=== PATIENT | female | born 1995 | race Caucasian/White ===

== ENCOUNTER 2022-09-09 19:15 | Emergency (ER) | payer BC, SELFPAY ==
--- NOTE | ~2022-09-09 | CT_ITS ---
EXAMINATION: CT abdomen pelvis w con DATE: 09/09/2022 21:15 INDICATION: rlq PAIN TECHNIQUE: Computed tomography (CT) of the abdomen and pelvis was performed with 100 mL Omnipaque-350 intravenous contrast. Automated exposure control and iterative reconstruction technique were employe d. The dose-length product was 635.05 mGy-cm. COMPARISON: None. FINDINGS: Lower thorax: Unremarkable Liver: Normal. Biliary/Gallbladder: Gallbladder is normal. No bile duct dilation. Pancreas: No mass or duct dilation. Spleen: Normal. Adrenals:No mass. Kidneys: Punctate calcification in the left midpole. Left midpole scar. No mass, obstructing stone, o r hydronephrosis. GI tract: Mild distal esophageal and gastric wall edema. No small or large bowel dilation. A small ap pendix versus appendiceal stump, without surrounding inflammatory change. Mesentery/Peritoneum: No ascites, mass, or free air. Multiple prominent mesenteric lymph nodes measur ing up to 11 mm in short axis diameter. Retroperitoneum: No mass. Pelvis: Pelvic organs are within normal limits. Soft Tissues: Soft tissues and body wall unremarkable. Bones: No acute osseous finding. IMPRESSION: Esophagitis/gastritis. Mesenteric lymphadenopathy. No other acute abdominopelvic process detected. Reviewed, dictated and finalized at location K. IMPRESSION: Esophagitis/gastritis. Mesenteric lymphadenopathy. No other acute abdominopelvi c process detected.
[2022-09-09 19:19] VITALS: BP 150/92; PULSE 120; RESP 16; TEMP 36.8; O2SAT 100
--- NOTE | 2022-09-09 19:40 | PC.NURSE ---
Pt attempted UA collection at this time without success.
[2022-09-09 19:47] LABS: Hematocrit 40.6 % (37.0-47.0); Hemoglobin 13.2 g/dL (12.0-15.0); Mean Corpuscular HGB Conc 32.5 g/dl (32-36); Mean Corpuscular Hemoglobin 27.3 pg (26-34); Mean Corpuscular Volume 84.1 fl (80-100); Mean Platelet Volume 9.9 fl (7.4-10.4); Platelet Count Result 410 k/mm3 (150-375); Red Blood Count 4.83 M/mm3 (4.6-6.20); Red Cell Distribution Width 13.1 % (11.5-14.5); White Blood Count 16.8 K/mm3 (4.5-10.0)
[2022-09-09 19:57] LABS: Alanine Aminotransferase 20 U/L (6-35); Albumin Level 4.4 g/dL (3.5-5.1); Alkaline Phosphatase 132 U/L (38-126); Anion Gap 10 mmol/L (8-16); Aspartate Amino Transferase 21 U/L (14-36); Bilirubin,Total 0.5 mg/dL (0.2-1.3); Blood Urea Nitrogen 8 mg/dL (7-17); Calcium 8.8 mg/dL (8.4-10.2); Carbon Dioxide 22 mmol/L (22-30); Chloride 105 mmol/L (98-107); Estimated CRCL calculation 146 ml/min; Estimated Glomerular Filt Rate > 60; Glucose 100 mg/dL (65-110); Lipase 83 U/L (23-300); Potassium 3.5 mmol/L (3.4-5.0); Sodium 137 mmol/L (137-145)
[2022-09-09 20:18] LABS: Band Neutrophils Percent 1 % (0-6); Lymphocytes Absolute Manual 5.04 K/mm3 (1.1-4.5); Monocytes Absolute Manual 1.17 K/mm3 (0.1-0.90); Monocytes Percent Manual 7 % (3-9); Neutrophils Absolute Manual 10.58 K/mm3 (1.7-7.2); Neutrophils Percent Manual 62 % (46-73); Total Cells Counted 100
[2022-09-09 20:19] LABS: Platelet Estimate Increased (Adequate); Schistocytes None Seen (NORMAL)
[2022-09-09 20:52] LABS: Appearance Urine Clear (Clear); Bacteria Urine None Seen /hpf; Bilirubin Urine Negative (Negative); Blood Urine Trace (Negative); Color Urine Yellow (Yellow); Glucose Urine UA Negative (Negative); Ketones Urine Negative (Negative); Leukocyte Esterase Ur Negative LEU/UL (Negative); Nitrate Urine Negative (Negative); Non Pathogenic Casts 0-2; Protein Urine Negative (Negative); RBC Urine 0-2 /hpf (0-2); Squamous Epithelial Cell Urine None seen /hpf (Few); Urobilinogen Urine 0.2 mg/dL (<2.0); WBC Urine 0-5 /hpf
[2022-09-09 20:54] LABS: Add Urine Microscopic? YES
[2022-09-09] MEDS: KETOROLAC 15 MG/ML VIAL (*BKC) IV PUSH (21:23)
[2022-09-09] MEDS: SODIUM CHLORIDE 0.9% IV 2,000 ML 999 ML IV CONT (21:26)
[2022-09-09] MEDS: ACETAMINOPHEN 500 MG TABLET 1000 MG PO (21:26)
[2022-09-09 21:29] VITALS: BP 117/75; PULSE 78; RESP 16; O2SAT 100
[2022-09-09 21:31] VITALS: BP 125/82; PULSE 87; RESP 16; O2SAT 100
--- NOTE | 2022-09-09 22:08 | ED.GENADULT ---
HPI - General Adult General Chief complaint: Abdominal Pain Stated complaint: right side abdominal pain Time Seen by Provider: 09/09/22 19:37 History of Present Illness HPI narrative: a 19-year-old female presenting ED with chief complaint of abdominal pain. Patient says that she has been having intermittent abdominal pain for the last 2 weeks. She is unable to describe the pain other than it hurts. It is nonradiating 5 out 10 intensity and comes and goes. She has never had this pain before in past. It is worse with movement. She has noted some loose bowel movements recently. No alleviating factors. She denies fever, chills, nausea, vomiting or urinary symptoms. No vaginal bleeding discharge. Related Data Allergies Allergy/AdvReac Type Severity Reaction Status Date / Time No Known Allergies Allergy Verified 09/09/22 19:16 Exam Narrative: APPEARANCE: No apparent distress. Head: atraumatic. EYES: EOMI, NOSE: Atraumatic NECK: Trachea midline RESPIRATORY: No increased rate of breathing CARDIOVASCULAR: RRR, ABDOMINAL: Nondistended, very mild tenderness to palpation on the right side between the upper and lower quadrants. No guarding no rebound. No CVA tenderness MUSCULOSKELETAl: No obvious deformities NEURO: Alert. Moving 4/4 extremities SKIN:: Warm, dry. Normal color PSYCHIATRIC: Normal affect Course Vital Signs Vital signs: Vital Signs Temperature 98.2 F 09/09/22 19:19 Pulse Rate 120 H 09/09/22 19:19 Respiratory Rate 16 09/09/22 19:19 Blood Pressure 150/92 H 09/09/22 19:19 Pulse Oximetry 100 09/09/22 19:19 Oxygen Delivery Room Air 09/09/22 19:19 Temperature 98.2 F 09/09/22 19:19 Pulse Rate 87 09/09/22 21:31 Respiratory Rate 16 09/09/22 21:31 Blood Pressure 125/82 09/09/22 21:31 Pulse Oximetry 100 09/09/22 21:31 Oxygen Delivery Room Air 09/09/22 19:19 Medical Decision Making [facility] Narrative Medical decision making narrative: -Presentation: 27-year-old female presenting with a right sided abdominal pain. -DDX includes but is not limited to: Cholecystitis, appendicitis, gastroenteritis -Co-morbidities complicating care: anxiety depression -Social determinants of health: Patient works a [employer] and lives with her fiance JR -External Chart Review: none -Hx from independent Sources:JR @ bedside -Discussion of Management/Consultants: None -Independent interpretation of studies: CBC was significant for white blood cell count of 16.8. Patient is afebrile. Metabolic panel was unremarkable. Urinalysis was not indicative of infection. CT abdomen pelvis showed mesenteric lymphadenopathy, and gastritis, but no other acute findings. Dx tests considered but not ordered: None -Procedures: none -Interventions: 2 L normal saline, Toradol, Tylenol -Shared decision making / Disposition: patient has a white blood cell count of 16.8 but no findings on her CT abdomen pelvis. Her abdominal exam is benign and she is resting comfortably. She is tolerating p.o.. Her vital signs are stable. Patient will be discharged with primary care follow-up and strict return precautions. -RX Vital Signs Vital Signs: Vital Signs Temperature 98.2 F 09/09/22 19:19 Pulse Rate 120 H 09/09/22 19:19 Respiratory Rate 16 09/09/22 19:19 Blood Pressure 150/92 H 09/09/22 19:19 Pulse Oximetry 100 09/09/22 19:19 Oxygen Delivery Room Air 09/09/22 19:19 Temperature 98.2 F 09/09/22 19:19 Pulse Rate 87 09/09/22 21:31 Respiratory Rate 16 09/09/22 21:31 Blood Pressure 125/82 09/09/22 21:31 Pulse Oximetry 100 09/09/22 21:31 Oxygen Delivery Room Air 09/09/22 19:19 Lab Data 09/09/22 19:41 09/09/22 19:41 Labs: Lab Results 09/09/22 09/09/22 Range/Units 19:41 20:41 WBC 16.8 H (4.5-10.0) K/mm3 RBC 4.83 (4.6-6.20) M/mm3 Hgb 13.2 (12.0-15.0) g/dL Hct 40.6 (37.0-47.0) % MCV 8
== END 2022-09-09 22:33 | disposition home or self-care (01) ==
PROVIDERS: Emergency Provider Emergency Medicine
DX: R10.31 Right lower quadrant pain (principal); R10.32 Left lower quadrant pain; D72.829 Elevated white blood cell count, unspecified
CPT/HCPCS: 36415; 74177; 80053; 81001; 83690; 85025; 96361; 96374; 99284; A9270; J1885; J7030; Q9967